=== PATIENT | male | born 1990 | race Hispanic/Latino ===

== ENCOUNTER 2017-11-22 04:20 | Emergency (ER) | payer SELFPAY | END 2017-11-22 04:31 | LOC: EDH 04:20 | DX: Z02.83 Encounter for blood-alcohol and blood-drug test (principal) ==

== ENCOUNTER 2022-09-14 21:31 | Emergency (ER) | payer OTHER ==
[~2022-09-14] VITALS: Ht 175.3 cm; Wt 63.0 kg
[2022-09-14 21:33] VITALS: BP 111/67
[2022-09-14] MEDS ORDERED: NAPR500T6 PO (23:06)
[2022-09-14] MEDS ORDERED: CYCL10TA16 PO (23:06)
[2022-09-14] MEDS ORDERED: ORPHENADRINE CITRATE 30 MG/ML ML IM ONE (23:30)
[2022-09-14] MEDS ORDERED: KETOROLAC 30MG VIAL (30MG/ML) IM ONE (23:30)
== END 2022-09-14 23:18 | disposition home or self-care (01) ==
LOC: EDH 21:31
DX: S29.012A Strain of muscle and tendon of back wall of thorax, initial encounter (principal); X50.1XXA Overexertion from prolonged static or awkward postures, initial encounter; Y93.89 Activity, other specified; Y92.89 Other specified places as the place of occurrence of the external cause; Y99.8 Other external cause status
CPT/HCPCS: 99284; 96372; J1885; J2360